=== PATIENT | female | born 1945 | race Asian ===

== ENCOUNTER 2019-11-02 04:36 | Day surgery (SDC) | payer OTHER ==
[2019-10-31 15:24] VITALS: BMI 22.6
[2019-11-02] MEDS ORDERED: LIDOCAINE HCL 1% EPINEPHRINE 1:200,000 30 ML VIAL (PF) ONE (07:20)
[2019-11-02] MEDS ORDERED: MIDAZOLAM HCL 2 MG/2 ML SINGLE DOSE VIAL ONE (07:23)
[2019-11-02] MEDS ORDERED: LIDOCAINE HCL/PF 2% SDV 5ML VIAL ONE (07:23)
[2019-11-02] MEDS ORDERED: DEXAMETHASONE SOD PHOSPHATE 4 MG/1 ML VIAL ONE (07:23)
[2019-11-02] MEDS ORDERED: ROCURONIUM BROMIDE 50 MG/5 ML SYRINGE ONE (07:23)
[2019-11-02] MEDS ORDERED: PROPOFOL 20 ML ONE (07:23)
--- NOTE | 2019-11-02 08:04 | HP ---
History & Physical Update - History History: No Change - Physical Physical: No Change - Assessment Assessment: No Change - Plan Plan: No Change
[2019-11-02] MEDS ORDERED: ceFAZolin 2 GRAM PREMIX BAG IVPB ONE (08:10)
[2019-11-02] MEDS ORDERED: ceFAZolin SODIUM 1 GM VIAL ONE (08:12)
[2019-11-02] MEDS ORDERED: LIDOCAINE 1%/EPI 1:100000 (20 ML MULTI DOSE VIAL) IJ ONE ×2 (08:26)
--- NOTE | 2019-11-02 09:14 | OP ---
Operative Note - Note: Operative Date: 11/02/19 Pre-Operative Diagnosis: left supraclavicular mass/cyst Operation: Excision, left supraclavicular mass Findings: 2 cm cystic mass/sebaceous cyst Post-Operative Diagnosis: Same as Pre-op Surgeon: Neil Miller Anesthesia: Local, MAC Estimated Blood Loss (mls): 1 Operative Report Dictated: Yes
[2019-11-02 09:27] VITALS: TEMP 97.8
[2019-11-02] MEDS ORDERED: oxyCODONE HCL 5 MG TABLET PO PRN (09:52)
[2019-11-02] MEDS ORDERED: ONDANSETRON 4 MG/2 ML VIAL IVPUSH PRN (09:52)
[2019-11-02] MEDS ORDERED: LACTATED RINGERS SOLUTION 1,000 ML IV SCH (10:00)
[2019-11-02 10:24] VITALS: BP 139/73; PULSE 83
--- NOTE | 2019-11-02 11:49 | OP ---
DATE OF OPERATION: 11/02/2019 PROCEDURE: Excision biopsy of left supraclavicular mass. PREOPERATIVE DIAGNOSIS: Left supraclavicular mass/cyst. POSTOPERATIVE DIAGNOSIS: Left supraclavicular mass/cyst. SURGEON: Neil Miller MD ANESTHESIA: Local with sedation. FINDINGS AND PROCEDURE: This is a 74-year-old female who presents with more than 10 years' history of a slowly growing cystic mass of the left supraclavicular area. The mass is about 2 cm in size, cystic in character, with smooth and well-defined borders. This patient desired elective excision biopsy of the mass, and consent was obtained after discussing the risks, benefits, and alternatives to the procedure. Patient was brought to the operating room and placed in supine position. After giving intravenous sedation, the operative site was prepped and draped in the usual sterile fashion. Using lidocaine 1% with epinephrine, field block anesthesia was then administered. A 2.5 x 1-cm elliptical incision was made over the mass, incorporating the central sinus using scalpel blade No. 10, with dissection carried down to the dermis. Further dissection using Metzenbaum scissors and Bovie cautery was done until the cystic mass together with the ellipse of skin was completely removed. The wound was undermined about 0.5 cm from its margins for tension-free closure. The wound was closed with interrupted Polysorb 3-0 suture for the dermis and continuous Biosyn 4-0 suture for the subcuticular layer. The wound closure was reinforced with Steri-Strips and covered with sterile dressing. Patient was then transferred to the ambulatory surgery unit in satisfactory condition. ESTIMATED BLOOD LOSS: About 1 mL. WOUND CLASS: Clean. PREOPERATIVE ANTIBIOTICS: The patient received a gram of Ancef prior to the start of the procedure. Delicia [id number] MTDD
--- NOTE | 2019-11-06 10:57 | PATH ---
Surgical Pathology Report Patient Name: BI TUCK[facility]. Rec. #: [id number] /Age/Gender: 1945 (Age: 74) / F Account: [id number] Location: [facility] SURGICAL Taken: 11/02/2019 Received: 11/02/2019 Reported: 11/06/2019 Physicians: Neil Miller M.D. Specimen(s) Received LEFT SUPRACLAVICULAR MASS Clinical History Left supraclavicular cyst Final Diagnosis SUPRACLAVICULAR MASS, LEFT, EXCISION: EPIDERMAL INCLUSION CYST. Electronically Signed Rima Paris M.D. Gross Description Received in formalin labeled "left supraclavicular mass," is a 1.8 x 1.5 x 1.5 cm bang, intact cyst which is partially surfaced by a 1.7 x 0.9 cm bang, elliptical, unremarkable portion of skin. A medical representative section is submitted in one cassette. /11/02/2019 [facility]11/02/2019
== END 2019-11-02 10:30 | disposition home or self-care (01) ==
LOC: JASU-SURG 04:36
PROVIDERS: ATTEND Surgery
PROC: 0HB4XZX Excision of Neck Skin, External Approach, Diagnostic (ICD-10-PCS; principal; 2019-11-02 08:00)
DX: L72.0 Epidermal cyst (principal)
CPT/HCPCS: 82962; 88304-TC

== ENCOUNTER 2022-01-28 04:37 | Day surgery (SDC) | payer OTHER ==
[2022-01-27 12:53] VITALS: BMI 23.6
[2022-01-28 10:53] VITALS: BP 134/84; PULSE 82; RESP 13
[2022-01-28 13:29] VITALS: TEMP 98
== END 2022-01-28 10:54 | disposition home or self-care (01) ==
LOC: JASU-ENDO 04:37
PROVIDERS: ATTEND Internal Medicine Gastroenterology
PROC: 0DB68ZX Excision of Stomach, Via Natural or Artificial Opening Endoscopic, Diagnostic (ICD-10-PCS; 2022-01-28)
PROC: 0DB78ZX Excision of Stomach, Pylorus, Via Natural or Artificial Opening Endoscopic, Diagnostic (ICD-10-PCS; 2022-01-28)
PROC: 0DJD8ZZ Inspection of Lower Intestinal Tract, Via Natural or Artificial Opening Endoscopic (ICD-10-PCS; principal; 2022-01-28 09:15)
DX: Z12.11 Encounter for screening for malignant neoplasm of colon (principal); K29.40 Chronic atrophic gastritis without bleeding; K29.50 Unspecified chronic gastritis without bleeding; Z80.0 Family history of malignant neoplasm of digestive organs; E11.9 Type 2 diabetes mellitus without complications; Z79.84 Long term (current) use of oral hypoglycemic drugs
CPT/HCPCS: 43239; G0121; 88305-TC; 88342-TC

== ENCOUNTER 2024-06-25 05:46 | Day surgery (SDC) | payer OTHER ==
[2024-06-21 12:44] VITALS: BMI 21.9
[2024-06-25] MEDS ORDERED: PROPOFOL 20 ML ONE (10:50)
[2024-06-25] MEDS ORDERED: MIDAZOLAM HCL 2 MG/2 ML SINGLE DOSE VIAL ONE (10:50)
[2024-06-25] MEDS: ceFAZolin SODIUM 1 GM VIAL IVPB ONE (11:28)
[2024-06-25] MEDS ORDERED: GENTAMICIN SO4 80 MG/2 ML VIAL ONE (11:30)
[2024-06-25] MEDS: GENTAMICIN 80MG PREMIX BAG IVPB ONE (11:30)
[2024-06-25] MEDS ORDERED: ceFAZolin SODIUM 1 GM VIAL ONE (11:34)
[2024-06-25] MEDS ORDERED: DEXAMETHASONE SOD PHOSPHATE 4 MG/1 ML VIAL ONE (11:34)
[2024-06-25] MEDS ORDERED: ONDANSETRON 4 MG/2 ML VIAL ONE (11:34)
[2024-06-25] MEDS ORDERED: ONDANSETRON 4 MG/2 ML VIAL IVPUSH PRN (11:51)
[2024-06-25] MEDS: LACTATED RINGERS SOLUTION 1,000 ML IV SCH (12:01)
[2024-06-25 13:12] VITALS: RESP 16; TEMP 97.6
[2024-06-25 14:20] VITALS: BP 166/80; PULSE 92
== END 2024-06-25 14:30 | disposition home or self-care (01) ==
LOC: JASU-SURG 05:46
PROVIDERS: ATTEND Urology
PROC: BT1DZZZ Fluoroscopy of Right Kidney, Ureter and Bladder (ICD-10-PCS; principal; 2024-06-25 10:45)
DX: N13.30 Unspecified hydronephrosis (principal); N30.30 Trigonitis without hematuria
CPT/HCPCS: 76000-TC-FY; 82962; 94760; C1758